=== PATIENT | male | born 1985 | race Caucasian/White ===

== ENCOUNTER 2018-01-07 11:02 | Inpatient (IN) | payer SELFPAY ==
[~2018-01-07] VITALS: Ht 157.5 cm; Wt 68.9 kg
[2018-01-07 11:07] VITALS: Ht 157.5 cm; Wt 68.9 kg
[2018-01-07 11:50] LABS: BASOPHIL % 0.4 % (0-2); PLATELET COUNT 260 x10^3mcL (130-400); RED CELL DISTRIBUTION WIDTH 13.2 % (11.5-14.5)
[2018-01-07 11:56] LABS: CALCIUM 8.8 mg/dL (8.5-10.1); CARBON DIOXIDE 26.4 mmol/L (21-32); CHLORIDE SERUM 102 mmol/L (98-107); CREATININE SERUM 0.7 mg/dL (0.7-1.3); GFR1 > 60 mL/min; GLUCOSE SERUM 93 mg/dL (74-106); POTASSIUM SERUM 3.9 mmol/L (3.5-5.1); SODIUM SERUM 137 mmol/L (136-145)
[2018-01-07 12:00] LABS: ALBUMIN 3.6 g/dL (3.4-5.0); ALKALINE PHOSPHATASE 77 U/L (46-116); ALT/SGPT 54 U/L (16-63); AST/SGOT 36 U/L (15-37); BILIRUBIN TOTAL 1.3 mg/dL (0.20-1.00); LIPASE 141 IU/L (73-393); TOTAL PROTEIN, SERUM 7.3 g/dL (6.4-8.2)
[2018-01-07 13:24] LABS: CHOLESTEROL/HDL RATIO 2.7; MAGNESIUM 1.8 mg/dL (1.8-2.4); PHOSPHOROUS 2.6 mg/dL (2.5-4.9)
[2018-01-07 13:28] LABS: T3 TOTAL 0.88 ng/mL
[2018-01-07 13:34] LABS: FREE T4 1.14 ng/dL (0.76-1.46); FREE THYROXINE INDEX 2.8 ug/dL (1.4-4.5); T4(THYROXINE) 8.4 ug/dL (4.7-13.3)
[2018-01-07 15:09] VITALS: BP 108/58
[2018-01-07 20:44] VITALS: BP 99/50
[2018-01-08 05:32] VITALS: BP 97/51
[2018-01-08 06:17] LABS: BASOPHIL % 0.4 % (0-2); PLATELET COUNT 232 x10^3mcL (130-400); RED CELL DISTRIBUTION WIDTH 13.2 % (11.5-14.5)
[2018-01-08 06:27] LABS: CALCIUM 8.1 mg/dL (8.5-10.1); CARBON DIOXIDE 25.5 mmol/L (21-32); CHLORIDE SERUM 104 mmol/L (98-107); CREATININE SERUM 0.7 mg/dL (0.7-1.3); GFR1 > 60 mL/min; GLUCOSE SERUM 81 mg/dL (74-106); MAGNESIUM 1.9 mg/dL (1.8-2.4); PHOSPHOROUS 3.3 mg/dL (2.5-4.9); POTASSIUM SERUM 3.7 mmol/L (3.5-5.1); SODIUM SERUM 139 mmol/L (136-145)
[2018-01-08 06:34] LABS: microscopic required? NO
[2018-01-08 07:03] LABS: urine erythrocyte NEGATIVE (NEGATIVE)
[2018-01-08 07:45] LABS: AMPHETAMINE QUAL UR NONE DETECTED (See below)
[2018-01-08 13:11] VITALS: BP 123/68
[2018-01-08 16:28] VITALS: BP 103/54
[2018-01-08 21:15] VITALS: BP 109/52
[2018-01-09 05:05] VITALS: BP 107/50
[2018-01-09 05:55] LABS: BASOPHIL % 0.2 % (0-2); PLATELET COUNT 278 x10^3mcL (130-400); RED CELL DISTRIBUTION WIDTH 13.3 % (11.5-14.5)
[2018-01-09 06:18] LABS: ALKALINE PHOSPHATASE 83 U/L (46-116); ALT/SGPT 54 U/L (16-63); AST/SGOT 25 U/L (15-37); BILIRUBIN DIRECT 0.19 mg/dL (0.0-0.2); BILIRUBIN TOTAL 0.62 mg/dL (0.20-1.00); CALCIUM 8.3 mg/dL (8.5-10.1); CARBON DIOXIDE 27.9 mmol/L (21-32); CHLORIDE SERUM 105 mmol/L (98-107); CREATININE SERUM 0.7 mg/dL (0.7-1.3); GFR1 > 60 mL/min; GLUCOSE SERUM 95 mg/dL (74-106); PHOSPHOROUS 3.1 mg/dL (2.5-4.9); POTASSIUM SERUM 3.8 mmol/L (3.5-5.1); SODIUM SERUM 139 mmol/L (136-145)
[2018-01-09 06:39] LABS: ALBUMIN 2.5 g/dL (3.4-5.0); TOTAL PROTEIN, SERUM 5.9 g/dL (6.4-8.2)
[2018-01-09 09:42] VITALS: BP 108/58
[2018-01-09 13:14] VITALS: BP 107/52; BP 109/52
[2018-01-09 17:48] VITALS: BP 114/58
[2018-01-09 21:30] VITALS: BP 104/44
[2018-01-10 05:27] VITALS: BP 102/54
[2018-01-10 05:50] LABS: BASOPHIL % 0.4 % (0-2); PLATELET COUNT 313 x10^3mcL (130-400); RED CELL DISTRIBUTION WIDTH 13.2 % (11.5-14.5)
[2018-01-10 06:08] LABS: ALKALINE PHOSPHATASE 68 U/L (46-116); ALT/SGPT 44 U/L (16-63); AST/SGOT 19 U/L (15-37); BILIRUBIN TOTAL 0.4 mg/dL (0.20-1.00); CALCIUM 8.4 mg/dL (8.5-10.1); CHLORIDE SERUM 108 mmol/L (98-107); CREATININE SERUM 0.6 mg/dL (0.7-1.3); GFR1 > 60 mL/min; GLUCOSE SERUM 89 mg/dL (74-106); PHOSPHOROUS 3.9 mg/dL (2.5-4.9); POTASSIUM SERUM 3.8 mmol/L (3.5-5.1); SODIUM SERUM 143 mmol/L (136-145)
[2018-01-10 06:09] LABS: ALBUMIN 2.6 g/dL (3.4-5.0); TOTAL PROTEIN, SERUM 5.8 g/dL (6.4-8.2)
[2018-01-10 09:08] VITALS: BP 98/44
[2018-01-10] MEDS ORDERED: LEVAQUIN750 MG PO (10:52)
[2018-01-10] MEDS ORDERED: FLA500 PO (10:53)
[2018-01-10] MEDS ORDERED: NOR10T PO (10:54)
[2018-01-10 12:46] VITALS: BP 111/60
[2018-01-10 14:21] VITALS: BP 111/60
[2018-01-10 14:36] VITALS: BP 111/60
== END 2018-01-10 15:39 | disposition home or self-care (01) | DRG 417 ==
LOC: ED 11:02 → MU 12:25
PROVIDERS: Emergency Medicine; Internal Medicine; Surgery
PROC: 0FT44ZZ Resection of Gallbladder, Percutaneous Endoscopic Approach (ICD-10-PCS; principal; 2018-01-08 08:45)
DX: K80.00 Calculus of gallbladder with acute cholecystitis without obstruction (principal); E43 Unspecified severe protein-calorie malnutrition; E83.51 Hypocalcemia; J45.909 Unspecified asthma, uncomplicated; K52.9 Noninfective gastroenteritis and colitis, unspecified; Z82.49 Family history of ischemic heart disease and other diseases of the circulatory system; Z83.3 Family history of diabetes mellitus; Z68.26 Body mass index [BMI] 26.0-26.9, adult
CPT/HCPCS: 84439; 94150; J0696; J1170; J1885; J2250; J2405; J2543; J2550; J3010; J3490; J7030

== ENCOUNTER → 2019-09-22 | Outpatient (CLI) | payer MEDICAID ==
[~2019-09-22] MED LIST: FLA500 PO; LEVAQUIN750 MG PO; NOR10T PO
[2019-09-22 11:08] LABS: BASOPHIL % 0.6 % (0-2); PLATELET COUNT 323 x10^3mcL (130-400); RED CELL DISTRIBUTION WIDTH 13.1 % (11.5-14.5)
[2019-09-22 11:35] LABS: ALBUMIN 3.7 g/dL (3.4-5.0); ALKALINE PHOSPHATASE 201 U/L (46-116); ALT/SGPT 409 U/L (16-63); AST/SGOT 129 U/L (15-37); BILIRUBIN DIRECT 1.85 mg/dL (0.0-0.2); BILIRUBIN TOTAL 2.52 mg/dL (0.20-1.00); CALCIUM 9.4 mg/dL (8.5-10.1); CARBON DIOXIDE 26.2 mmol/L (21-32); CHLORIDE SERUM 102 mmol/L (98-107); CREATININE SERUM 0.7 mg/dL (0.7-1.3); GFR1 > 60 mL/min; GLUCOSE SERUM 106 mg/dL (74-106); LIPASE 256 IU/L (73-393); POTASSIUM SERUM 4.1 mmol/L (3.5-5.1); SODIUM SERUM 137 mmol/L (136-145); TOTAL PROTEIN, SERUM 7.4 g/dL (6.4-8.2)
== END | disposition home or self-care (01) ==
LOC: LB 10:45
PROVIDERS: Student in an Organized Health Care Education/Training Program
DX: K85.90 Acute pancreatitis without necrosis or infection, unspecified (principal); R10.9 Unspecified abdominal pain